=== PATIENT | male | born 1955 | race African-American/Black ===

== ENCOUNTER 2021-06-23 09:43 | Emergency (ER) | payer OTHER ==
--- NOTE | 2021-06-23 10:25 | ER ---
Nurse's Notes [facility] Name: Dio Dean Age: 66 yrs Sex: Male : 1955 Arrival Date: 06/23/2021 Time: 09:47 Bed 19 [facility] MD: Diagnosis: Periapical abscess without sinus Presentation: 06/23 10:03 Chief complaint: Left lower molar pain and facial swelling upon waking today. hb Coronavirus screen: At this time, the client does not indicate any symptoms associated with coronavirus-19. Ebola Screen: No symptoms or risks identified at this time. Initial Sepsis Screen: Does the patient meet any 2 criteria? No. Patient's initial sepsis screen is negative. Does the patient have a suspected source of infection? No. Patient's initial sepsis screen is negative. Risk Assessment: Do you want to hurt yourself or someone else? Patient reports no desire to harm self or others. Onset of symptoms was June 23, 2021. 10:03 Method Of Arrival: Ambulatory hb 10:03 Acuity: JACINTA 4 hb Historical: - Allergies: 10:05 No Known Allergies; hb - Home Meds: 10:05 amlodipine oral [Active]; Lisinopril Oral [Active]; sertraline oral [Active]; hb - PMHx: 10:05 HTN; hb - PSHx: 10:05 None; hb - Immunization history:: Adult Immunizations up to date, Client reports receiving the 2nd dose of the Covid vaccine. - Social history:: Smoking status: Patient denies any tobacco usage or history of. Screenin:21 Abuse screen: Denies threats or abuse. Nutritional screening: No deficits noted. kh1 Tuberculosis screening: No symptoms or risk factors identified. Never had TB. Possible symptoms: None Risk factors: None. Fall Risk None identified. No fall in past 12 months (0 pts). No secondary diagnosis (0 pts). No IV (0 pts). Ambulatory Aid- None/Bed Rest/Nurse Assist (0 pts). Gait- Normal/Bed Rest/Wheelchair (0 pts) Mental Status- Oriented to own ability (0 pts). Assessment: 10:19 General: Appears in no apparent distress. comfortable, Behavior is calm, cooperative, kh1 appropriate for age. Pain: Denies pain. Neuro: No deficits noted. Level of Consciousness is awake, alert, obeys commands, Oriented to person, place, time, situation, Appropriate for age Turning Machine Operator are equal bilaterally Moves all extremities. Gait is steady, Speech is normal, Facial symmetry appears normal, Reports. EENT: left side face swelling. Reports. Vital Signs: 10:03 BP 138 / 80; Pulse 82; Resp 16; Temp 97.8; Pulse Ox 99% on R/A; Weight 115.67 kg; hb Height 5 ft. 8 in. (172.72 cm); Pain 9/10; 10:22 BP 138 / 80; Pulse 90; Resp 18; Temp 98.1; Pulse Ox 99% on R/A; kh1 10:03 Body Mass Index 38.77 (115.67 kg, 172.72 cm) hb Vitals: 10:22 Cardiac Rhythm Assessment Regular. kh1 Lucas Coma Score: 10:22 Eye Response: spontaneous(4). Verbal Response: oriented(5). Motor Response: obeys kh1 commands(6). Total: 15. ED Course: 09:47 Patient arrived in ED. mr 09:58 Jeff Velazquez NP is PHCP. pm1 09:58 Mattie Montemayor MD is Attending Physician. pm1 10:05 Triage completed. 10:05 Arm band placed on. 10:07 Karlee Whitley is Primary Nurse. kh1 10:23 Patient has correct armband on for positive identification. Call light in reach. Side kh1 rails up X 1. 10:23 No provider procedures requiring assistance completed. kh1 10:31 Patient did not have IV access during this emergency room visit. kh1 Administered Medications: 10:31 Drug: HYDROcodone-acetaminophen 10 mg-325 mg 1 tabs Route: PO; kh1 Outcome: 10:24 Discharge ordered by . pm1 10:31 Discharged to home ambulatory, with family. kh1 10:31 Condition: stable 10:31 Discharge instructions given to patient, Instructed on discharge instructions, follow up and referral plans. medication usage, Demonstrated understanding of instructions, follow-up care, medications, Prescriptions given X 2. 10:32 Patient left the ED. 1 Signatures: Rachel Hart Jeff Velazquez, DRE BRAZING FURNACE FEEDER pm1 Margo Duval RN RN Karlee Whitley [facility]
--- NOTE | 2021-06-23 10:25 | EDPHYS ---
Physician Documentation [facility] Name: Dio Dean Age: 66 yrs Sex: Male : 1955 Arrival Date: 06/23/2021 Time: 09:47 Bed 19 Private MD: ED Physician Mattie Montemayor HPI: 06/23 10:22 This 66 yrs old Black Male presents to ER via Ambulatory with complaints of Dental pm1 abscess. 10:22 The patient presents with pain, swelling. The problem is located in the lower left pm1 second molar and lower left first molar. Onset: The symptoms/episode began/occurred 3 day(s) ago, Swelling today. Duration: The symptoms are continuous. Modifying factors: The symptoms are alleviated by over the counter medications, Numbing medications. Associated signs and symptoms: Pertinent negatives: fever, inability to eat. Severity of symptoms: in the emergency department the symptoms are actually worse. The patient has not recently seen a physician. Historical: - Allergies: 10:05 No Known Allergies; hb - Home Meds: 10:05 amlodipine oral [Active]; Lisinopril Oral [Active]; sertraline oral [Active]; hb - PMHx: 10:05 HTN; hb - PSHx: 10:05 None; hb - Immunization history:: Adult Immunizations up to date, Client reports receiving the 2nd dose of the Covid vaccine. - Social history:: Smoking status: Patient denies any tobacco usage or history of. ROS: 10:22 Constitutional: Negative for fever, chills, and weight loss. pm1 10:22 Cardiovascular: Negative for chest pain, palpitations, and edema, Respiratory: Negative for shortness of breath, cough, wheezing, and pleuritic chest pain, MS/Extremity: Negative for injury and deformity, Skin: Negative for injury, rash, and discoloration, Neuro: Negative for headache, weakness, numbness, tingling, and seizure. 10:22 ENT: Positive for dental pain, Negative for sore throat, difficulty swallowing, difficulty handling secretions, hoarseness. 10:22 All other systems are negative. Exam: 10:22 Constitutional: This is a well developed, well nourished patient who is awake, alert, pm1 and in no acute distress. Head/Face: Normocephalic, atraumatic. 10:22 Skin: Warm, dry with normal turgor. Normal color with no rashes, no lesions, and no evidence of cellulitis. MS/ Extremity: Pulses equal, no cyanosis. Neurovascular intact. Full, normal range of motion. 10:22 ENT: Mouth: Lips: normal, Oral mucosa: normal, pink and intact, moist, Gums: normal with healthy appearance, abscess, is not appreciated, Negative for trismus, Dental exam: dental caries, that is moderate, specifically in the upper left second molar (#15), lower left second molar (#18) and lower left first molar (#19). 10:22 Cardiovascular: Exam negative for acute changes, Rate: normal, Rhythm: regular, Pulses: no pulse deficits are appreciated. 10:22 Respiratory: Exam negative for acute changes, respiratory distress, shortness of breath. 10:22 Neuro: Exam negative for acute changes, Orientation: is normal, Mentation: is normal, Motor: is normal, moves all fours. Vital Signs: 10:03 BP 138 / 80; Pulse 82; Resp 16; Temp 97.8; Pulse Ox 99% on R/A; Weight 115.67 kg; hb Height 5 ft. 8 in. (172.72 cm); Pain 9/10; 10:22 BP 138 / 80; Pulse 90; Resp 18; Temp 98.1; Pulse Ox 99% on R/A; kh1 10:03 Body Mass Index 38.77 (115.67 kg, 172.72 cm) hb Gideon Coma Score: 10:22 Eye Response: spontaneous(4). Verbal Response: oriented(5). Motor Response: obeys kh1 commands(6). Total: 15. MDM: 10:04 Patient medically screened. pm1 10:24 Data reviewed: vital signs. Data interpreted: Pulse oximetry: on room air is 99 %. pm1 Interpretation: normal. Counseling: I had a detailed discussion with the patient and/or guardian regarding: the historical points, exam findings, and any diagnostic results supporting the discharge/admit diagnosis, the need for outpatient follow up, for definitive care, a dentist, to return to the emergency department if symptoms worsen or persist or if there are any questions or concerns that arise at home. 10:27 ED course: [place] reviewed, No results found. pm1 Administered Medications: 10:31 Drug: HYDROcodone-acetaminophen 10 mg-325 mg 1 tabs Route: PO; kh1 Disposition Summary: 06/23/21 10:24 Discharge Ordered Location: Home pm1 Problem: new pm1 Symptoms: have improved pm1 Condition: Stable pm1 Diagnosis - Periapical abscess without sinus pm1 Followup: pm1 - With: Emergency Department - When: As needed - Reason: Worsening of condition Followup: pm1 - With: Private Physician - When: 2 - 3 days - Reason: Recheck today's complaints, Continuance of care, Re-evaluation by your physician Discharge Instructions: - Discharge Summary Sheet pm1 - Dental Abscess pm1 - Dental Pain pm1 - Diet and Dental Disease pm1 Forms: - Medication Reconciliation Form pm1 - Thank You Letter pm1 - Antibiotic Education pm1 - Prescription Opioid Use pm1 Prescriptions: - acetaminophen-codeine 300-15 mg Oral tablet - take 2 tablet by ORAL route every 6 hours As needed as needed; 20 tablet; pm1 Refills: 0, Product Selection Permitted - Augmentin 875-125 mg Oral Tablet - take 1 tablet by ORAL route every 12 hours for 10 days; 20 tablet; Refills: 0, pm1 Product Selection Permitted Addendum: 06/28/2021 03:03 Co-signature as Attending Physician, Mattie candelaria a2 Signatures: Jeff Velazquez NP RIGHT OF WAY CLEARER pm1 Margo Duval, RN RN Mattie Conley MD MD ri2 Karlee Whitley on license of [facility]
[2021-06-23 10:44] VITALS: BP 138/80; O2SAT 99
[2021-06-23 10:46] VITALS: TEMP 98.1
[2021-06-23] MEDS ORDERED: HYDROCODONE/APAP 10/325 TAB ONE (10:52)
== END 2021-06-23 10:32 | disposition home or self-care (01) ==
LOC: ER 09:43
DX: K04.7 Periapical abscess without sinus (principal); I10 Essential (primary) hypertension
CPT/HCPCS: 99283